=== PATIENT | female | born 1980 | race Caucasian/White ===

== ENCOUNTER 2017-10-25 07:45 | Emergency (ER) | payer MEDICAID, OTHER ==
[~2017-10-25] VITALS: Ht 162.6 cm; Wt 80.0 kg
[2017-10-25] MEDS ORDERED: ONDANSETRON HCL 4MG/2ML VIAL IV STA (08:41)
[2017-10-25] MEDS ORDERED: SODIUM CHLORIDE 0.9% 1,000 ML IV ONE (08:41)
[2017-10-25] MEDS ORDERED: KETOROLAC 30MG/ML VIAL IV ONE (08:45)
[2017-10-25 09:15] LABS: BASOPHILS % 0.8 % (0.0-2.0); EOSINOPHILS % 0.1 % (0.0-5.0); HEMATOCRIT. 37.9 % (36.0-48.0); HEMOGLOBIN. 13.1 g/dL (12.0-16.0); LYMPHOCYTES % 16.8 % (20.0-50.0); MEAN CORPUSCULAR HEMOGLOBIN 30.2 pg (28.0-32.0); MEAN CORPUSCULAR VOLUME 87.7 fL (81.0-99.0); MEAN PLATELET VOLUME 9.1 fl (7.4-10.4); MONOCYTES % 2.3 % (2.0-8.0); PLATELET 241 x1000/uL (130-400); RED BLOOD CELL COUNT 4.32 mill/uL (4.2-5.4); RED CELL DISTRIBUTION WIDTH 12.8 % (11.6-14.6)
[2017-10-25 09:21] LABS: PROTHROMBIN TIME 10.5 sec (9.4-11.6)
[2017-10-25 09:25] LABS: CHLORIDE 107 mEq/L (98-107)
[2017-10-25 09:41] LABS: HCG SCREEN NEGATIVE
[2017-10-25] MEDS ORDERED: HYDROCODONE/ACETAMINOPHEN 10/325MG TABLET PO ONE (10:30)
[2017-10-25 10:45] LABS: CLARITY URINE CLOUDY (CLEAR); COLOR URINE YELLOW (YELLOW); KETONES URINE NEGATIVE (NEGATIVE); LEUKOCYTE ESTERASE URINE NEGATIVE (NEGATIVE); NITRITE URINE NEGATIVE (NEGATIVE); OCCULT BLOOD URINE NEGATIVE (NEGATIVE); PH URINE >=9.0 (4.5-8.0); PROTEIN URINE NEGATIVE (NEGATIVE); SPECIFIC GRAVITY URINE 1.016 (1.005-1.030); UROBILINOGEN URINE 0.2 E.U./dL (0.2-1.0)
[2017-10-25 11:12] LABS: *AMPHETAMINES SCREEN URINE NEGATIVE (NEGATIVE); *BARBITURATES SCREEN URINE NEGATIVE (NEGATIVE); *BENZODIAZEPINES SCREEN URINE NEGATIVE (NEGATIVE); *COCAINE SCREEN URINE NEGATIVE (NEGATIVE); CANNABINOID URINE SCREEN NEGATIVE (NEGATIVE); METHADONE URINE SCREEN NEGATIVE (NEGATIVE); OPIATES URINE SCREEN NEGATIVE (NEGATIVE); PHENCYCLIDINE URINE SCREEN NEGATIVE (NEGATIVE)
[2017-10-25] MEDS ORDERED: FAMOTIDINE 20MG TABLET PO ONE (11:15)
[2017-10-25] MEDS ORDERED: VISCOUS LIDOCAINE 2% 15 ML UDC PO ONE (11:15)
[2017-10-25] MEDS ORDERED: MAGNESIUM/ALUMINUM HYDROXIDE/SIMETHICONE 30ML UDC PO ONE (11:15)
[2017-10-25 12:35] VITALS: BP 145/93
== END 2017-10-25 12:37 | disposition home or self-care (01) ==
LOC: ER 08:00
DX: K80.20 Calculus of gallbladder without cholecystitis without obstruction (principal); K76.0 Fatty (change of) liver, not elsewhere classified; Z88.5 Allergy status to narcotic agent
CPT/HCPCS: 36415; 76705; 80053; 80305; 81003; 83690; 84703; 85025; 85610; 96361; 96374; 96375; 99285; J1885; J2405; J7030; Z7610

== ENCOUNTER 2018-05-30 09:30 | Emergency (ER) | payer MEDICAID ==
[~2018-05-30] VITALS: Ht 157.5 cm; Wt 89.0 kg
[2018-05-30] MEDS ORDERED: KETOROLAC 30MG/ML VIAL IV STA (09:52)
[2018-05-30] MEDS ORDERED: ONDANSETRON HCL 4MG/2ML INJ IV STA (09:52)
[2018-05-30] MEDS ORDERED: SODIUM CHLORIDE 0.9% 1,000 ML IV ONE (09:52)
[2018-05-30] MEDS ORDERED: FAMOTIDINE 20MG/2ML VIAL IV STA (09:52)
[2018-05-30 10:19] LABS: BASOPHILS % 0.9 % (0.0-2.0); EOSINOPHILS % 0.2 % (0.0-5.0); HEMATOCRIT. 38.5 % (36.0-48.0); HEMOGLOBIN. 13.6 g/dL (12.0-16.0); LYMPHOCYTES % 23.7 % (20.0-50.0); MEAN CORPUSCULAR HEMOGLOBIN 31.3 pg (28.0-32.0); MEAN CORPUSCULAR VOLUME 88.8 fL (81.0-99.0); MEAN PLATELET VOLUME 8.9 fl (7.4-10.4); MONOCYTES % 3.7 % (2.0-8.0); NEUTROPHILS % 71.5 % (40.0-76.0); PLATELET 238 x1000/uL (130-400); RED BLOOD CELL COUNT 4.33 mill/uL (4.2-5.4); RED CELL DISTRIBUTION WIDTH 13.3 % (11.6-14.6)
[2018-05-30] MEDS ORDERED: VISCOUS LIDOCAINE 2% 15 ML UDC PO STA (10:23)
[2018-05-30] MEDS ORDERED: MAGNESIUM/ALUMINUM HYDROXIDE/SIMETHICONE 30ML UDC PO STA (10:23)
[2018-05-30 10:25] LABS: CHLORIDE 107 mEq/L (98-107); PROTHROMBIN TIME 10.4 sec (9.1-11.1)
[2018-05-30] MEDS ORDERED: HYDROCODONE/ACETAMINOPHEN 5/325MG TABLET PO ONE (10:30)
[2018-05-30 10:35] LABS: CLARITY URINE TURBID (CLEAR); COLOR URINE YELLOW (YELLOW); KETONES URINE TRACE (NEGATIVE); LEUKOCYTE ESTERASE URINE 1+ (NEGATIVE); NITRITE URINE NEGATIVE (NEGATIVE); OCCULT BLOOD URINE 3+ (NEGATIVE); PROTEIN URINE 1+ (NEGATIVE); SPECIFIC GRAVITY URINE 1.031 (1.005-1.030); UROBILINOGEN URINE 0.2 E.U./dL (0.2-1.0)
[2018-05-30 11:22] LABS: *AMPHETAMINES SCREEN URINE NEGATIVE (NEGATIVE); *BARBITURATES SCREEN URINE NEGATIVE (NEGATIVE); *BENZODIAZEPINES SCREEN URINE NEGATIVE (NEGATIVE); *COCAINE SCREEN URINE NEGATIVE (NEGATIVE); METHADONE URINE SCREEN NEGATIVE (NEGATIVE)
[2018-05-30 11:23] LABS: CANNABINOID URINE SCREEN NEGATIVE (NEGATIVE); OPIATES URINE SCREEN NEGATIVE (NEGATIVE); PHENCYCLIDINE URINE SCREEN NEGATIVE (NEGATIVE)
[2018-05-30] MEDS ORDERED: DICYCLOMINE 10 MG/5 ML ORAL SYR PO STA (12:29)
[2018-05-30 14:15] VITALS: BP 134/77
== END 2018-05-30 14:26 | disposition home or self-care (01) ==
LOC: ER 09:41
DX: K80.20 Calculus of gallbladder without cholecystitis without obstruction (principal); N39.0 Urinary tract infection, site not specified; Z88.5 Allergy status to narcotic agent
CPT/HCPCS: 36415; 76705; 80053; 80305; 81003; 81025; 83690; 85025; 85610; 96361; 96374; 96375; 99285; J1885; J2405; J3490; J7030; Z7610

== ENCOUNTER 2018-08-28 13:58 | Inpatient (IN) | payer MEDICAID, OTHER ==
[~2018-08-28] VITALS: Ht 157.5 cm; Wt 77.1 kg
[2018-08-28] MEDS ORDERED: KETOROLAC 30MG/ML VIAL IV STA (23:24)
[2018-08-28] MEDS ORDERED: ONDANSETRON HCL 4MG/2ML INJ IV STA (23:24)
[2018-08-28] MEDS ORDERED: FAMOTIDINE 20MG/2ML VIAL IV STA (23:24)
[2018-08-28] MEDS ORDERED: SODIUM CHLORIDE 0.9% 1,000 ML IV ONE (23:24)
[2018-08-28 23:58] LABS: BASOPHILS % 0.5 % (0.0-2.0); LYMPHOCYTES % 14.6 % (20.0-50.0); MEAN CORPUSCULAR HEMOGLOBIN 29.9 pg (28.0-32.0); MEAN CORPUSCULAR VOLUME 89.7 fL (81.0-99.0); MEAN PLATELET VOLUME 9.1 fl (7.4-10.4); MONOCYTES % 2.8 % (2.0-8.0); NEUTROPHILS % 82.1 % (40.0-76.0); PLATELET 261 x1000/uL (130-400); RED BLOOD CELL COUNT 4.69 mill/uL (4.2-5.4)
[2018-08-29 00:05] LABS: CHLORIDE 105 mEq/L (98-107)
[2018-08-29 00:06] LABS: INR 1.1; PROTHROMBIN TIME 10.6 sec (9.1-11.1)
[2018-08-29 00:11] LABS: HCG SCREEN NEGATIVE
[2018-08-29] MEDS ORDERED: PIPERACILLIN/TAZ 3.375G PREMIX 50 ML IV ONE (00:45)
[2018-08-29 01:17] LABS: ETHANOL BLOOD < 10 mg/dL
[2018-08-29] MEDS: DEXT 5%/0.45% NACL 1000ML 1,000 ML IV SCH ×2 (07:35→16:51)
[2018-08-29] MEDS ORDERED: CLONIDINE 0.1MG TABLET PO PRN (07:45)
[2018-08-29] MEDS ORDERED: HYDRALAZINE 20MG/ML VIAL IV PRN (07:45)
[2018-08-29] MEDS ORDERED: ACETAMINOPHEN 325MG TABLET PO PRN (07:45)
[2018-08-29] MEDS ORDERED: PIPERACILLIN/TAZ 3.375G PREMIX 50 ML IV SCH (07:45)
[2018-08-29] MEDS ORDERED: GUAIFENESIN 200MG/10ML SUGAR FREE UDC PO PRN (07:45)
[2018-08-29] MEDS ORDERED: MAGNESIUM/ALUMINUM HYDROXIDE/SIMETHICONE 30ML UDC PO PRN (07:45)
[2018-08-29] MEDS ORDERED: TRAMADOL 50MG TABLET PO PRN (07:45)
[2018-08-29] MEDS ORDERED: LORAZEPAM 2MG/ML CPJ IV PRN (07:45)
[2018-08-29] MEDS ORDERED: HYDROMORPHONE HCL/PF 2MG/ML CPJ IV PRN (07:45)
[2018-08-29] MEDS ORDERED: ONDANSETRON HCL 4MG/2ML INJ IV PRN (07:45)
[2018-08-29 08:30] VITALS: BP 98/70
[2018-08-29] MEDS ORDERED: HYDRALAZINE 10 MG in SODIUM CHLORIDE 0.9% 49.5 ML IV PRN (08:45)
[2018-08-29 09:00] VITALS: BP 98/70
[2018-08-29] MEDS ORDERED: NA PHOS,M-B/NA PHOS,DI-BA ENEMA 118ML PR PRN (09:00)
[2018-08-29] MEDS ORDERED: IPRATROPIUM/ALBUTEROL 0.5-3(2.5)MG/3ML NEB INH PRN (09:00)
[2018-08-29] MEDS ORDERED: DOCUSATE SODIUM 100MG CAPSULE PO PRN (09:00)
[2018-08-29 12:00] VITALS: BP 99/60
[2018-08-29 12:30] VITALS: BP 109/76
[2018-08-29] MEDS: PIPERACILLIN/TAZ 3.375G PREMIX 50 ML IV SCH ×2 (13:21→16:50)
[2018-08-29] MEDS ORDERED: SODIUM CHLORIDE 0.9% INJ 3ML FLUSH IVF SCH (14:00)
[2018-08-29 16:00] VITALS: BP 117/85
[2018-08-29 17:56] VITALS: BP 112/80
== END 2018-08-29 18:29 | disposition home or self-care (01) ==
LOC: ER 13:58 → 6EST 08-29 00:44 → EDBEDREQSVC 08-29 00:48 → EDBEDREQ 08-29 00:48 → ENRESERV 08-29 07:35
PROVIDERS: ADMIT Internal Medicine; ATTEND Internal Medicine
DX: K80.00 Calculus of gallbladder with acute cholecystitis without obstruction (principal); F17.210 Nicotine dependence, cigarettes, uncomplicated; Z88.6 Allergy status to analgesic agent
CPT/HCPCS: 36415; 76705; 83605; 84703; 96374; 99291; G0482; J1885; J2405; J2543; J3490; J7030

== ENCOUNTER 2019-09-18 21:06 | Emergency (ER) | payer MEDICAID ==
[~2019-09-18] VITALS: Ht 157.5 cm; Wt 82.0 kg
[2019-09-19] MEDS ORDERED: IBUPROFEN 600MG TABLET PO ONE (01:00)
[2019-09-19] MEDS ORDERED: ACETAMINOPHEN 500MG TABLET PO ONE (03:15)
[2019-09-19 04:05] VITALS: BP 135/91
== END 2019-09-19 04:00 | disposition home or self-care (01) ==
LOC: ER 21:06
DX: M25.562 Pain in left knee (principal); M25.572 Pain in left ankle and joints of left foot; W01.0XXA Fall on same level from slipping, tripping and stumbling without subsequent striking against object, initial encounter; Y93.89 Activity, other specified; Y92.9 Unspecified place or not applicable; Z88.6 Allergy status to analgesic agent
CPT/HCPCS: 73562; 73610; 99283; L1830